=== PATIENT | female | born 1990 | race Caucasian/White ===

== ENCOUNTER 2024-07-04 20:39 | Emergency (ER) | payer MEDICAID ==
[2024-07-04 22:32] LABS: BASOPHILS PERCENT AUTO 0.4 % (0.1-1.3); HEMATOCRIT 31.9 % (34.3-46.0); HEMOGLOBIN 11.3 g/dL (11.2-15.5); IMMATURE GRAN PERCENT AUTO 0.2 % (0.0-0.7); LYMPHOCYTES ABSOLUTE AUTO 1.46 K/uL (0.8-3.3); LYMPHOCYTES PERCENT AUTO 29.7 % (11.4-47.7); MEAN CORPUSCULAR HEMOGLOBIN 32.8 pg (31.6-35.5); MEAN CORPUSCULAR HGB CONC 35.4 g/dL (31.6-35.5); MEAN CORPUSCULAR VOLUME 92.5 fL (81.4-99.0); MONOCYTES ABSOLUTE AUTO 0.44 K/uL (0.20-0.90); NEUTROPHILS ABSOLUTE AUTO 2.88 K/uL (1.0-7.6); NEUTROPHILS PERCENT AUTO 58.7 % (40.0-78.1); PLATELET COUNT,PLT 192 K/uL (130-375); RED BLOOD CELL COUNT 3.45 M/uL (3.77-5.24); WHITE BLOOD CELL COUNT,WBC 4.9 K/uL (3.2-11.0)
[2024-07-04 22:37] LABS: BASOPHILS ABSOLUTE AUTO 0.02 K/uL (0.00-0.10); IMMATURE GRAN ABSOLUTE AUTO 0.01 K/uL (0.00-0.23)
[2024-07-04 22:49] LABS: A/G RATIO 1.1 (1.2-2.2); ALANINE AMINOTRANSFERASE,ALT 19 U/L (12-78); ALBUMIN 3.8 g/dL (3.4-5.0); ALKALINE PHOSPHATASE 59 U/L (46-116); ASPARTATE AMNIOTRANSFERASE,AST 14 U/L (15-37); BILIRUBIN TOTAL 0.3 mg/dL (0.2-1.0); BLOOD UREA NITROGEN,BUN 10 mg/dL (7-18); CALCIUM 9.5 mg/dL (8.5-10.1); CARBON DIOXIDE,CO2 26 mmol/L (21-32); CHLORIDE,CL 100 mmol/L (100-108); CREATININE 0.6 mg/dL (0.6-1.0); ESTIMATED GFR 122 mL/min (>60); GLUCOSE RANDOM 97 mg/dL (74-106); POTASSIUM,K 3.5 mmol/L (3.6-5.2); PROTEIN TOTAL,TP 7.2 g/dL (6.4-8.2); SODIUM,NA 137 mmol/L (140-148)
[2024-07-04 22:52] LABS: ANION GAP 14.5 mmol/L (5.0-14.0)
== END 2024-07-04 22:30 | disposition left against medical advice (07) ==
LOC: JP.ED 20:39
DX: O20.9 Hemorrhage in early pregnancy, unspecified (principal); F17.210 Nicotine dependence, cigarettes, uncomplicated; Z3A.00 Weeks of gestation of pregnancy not specified
CPT/HCPCS: 36415; 80053; 85025; 99284